=== PATIENT | female | born 1950 | race Caucasian/White ===

== ENCOUNTER 2018-10-10 18:09 | Emergency (ER) | payer SELFPAY ==
[~2018-10-10] VITALS: Ht 167.6 cm; Wt 56.7 kg
[2018-10-10] MEDS ORDERED: Zithromax250 MG PO (19:39)
[2018-10-10] MEDS ORDERED: Cheratussin AC118 ML PO (19:39)
== END 2018-10-10 19:52 | disposition home or self-care (01) ==
LOC: ER 18:09
DX: J18.9 Pneumonia, unspecified organism (principal); F17.200 Nicotine dependence, unspecified, uncomplicated
CPT/HCPCS: 71046; 99283-25

== ENCOUNTER 2020-05-26 07:29 | Emergency (ER) | payer MEDICARE ==
[~2020-05-26] VITALS: Ht 167.6 cm; Wt 63.5 kg
[~2020-05-26 07:29] MED LIST: Cheratussin AC118 ML PO; Zithromax250 MG PO
[2020-05-26] MEDS ORDERED: GUAI600T33 PO (08:28)
[2020-05-26] MEDS ORDERED: DOXY100 PO (08:28)
== END 2020-05-26 08:34 | disposition home or self-care (01) ==
LOC: ER 07:29
DX: J40 Bronchitis, not specified as acute or chronic (principal)
CPT/HCPCS: 71045; 99283-25

== ENCOUNTER 2020-06-06 19:18 | Inpatient (IN) | payer MEDICARE ==
[~2020-06-06] VITALS: Ht 167.6 cm; Wt 62.3 kg
[~2020-06-06 19:18] MED LIST changes: +DOXY100 PO; +GUAI600T33 PO
[2020-06-06 20:23] LABS: BASOPHILS ABSOLUTE AUTO 0.04 K/mm3 (0.00-0.23); BASOPHILS PERCENT AUTO 0 % (0-2); EOSINOPHILS ABSOLUTE AUTO 0.02 K/mm3 (0.00-0.68); EOSINOPHILS PERCENT AUTO 0 % (0-6); Hematocrit 46.6 % (33.0-51.0); Hemoglobin 16.6 g/dL (11.5-16.0); IMMATURE GRAN ABSOLUTE AUTO 0.03 K/mm3 (0.00-0.10); IMMATURE GRAN PERCENT AUTO 0 % (0-1); LYMPHOCYTES PERCENT AUTO 23 % (21-46); MONOCYTES ABSOLUTE AUTO 0.82 K/mm3 (0.16-1.47); MONOCYTES PERCENT AUTO 8 % (4-13); Mean Corpuscular HGB 37.3 pg (26.0-34.0); Mean Corpuscular HGB Conc 35.6 g/dL (31.5-36.5); Mean Corpuscular Volume 105 fL (80-100); NEUTROPHILS PERCENT AUTO 69 % (41-73); Platelet Count 391 K/mm3 (150-400); RDW Coefficient Variation 12.7 % (11.7-14.2); RDW Standard Deviation 49.1 fL (35.1-46.3); Red Blood Cell Count 4.45 M/mm3 (3.80-5.20); White Blood Cell Count 10.91 K/mm3 (4.00-11.30)
[2020-06-06 20:24] LABS: Source, Urine Clean Catch
[2020-06-06 20:29] LABS: Appearance, Urine Clear (Clear); Bilirubin, Urine Neg (Neg); Blood, Urine Neg (Neg); Color, Urine Yellow (P-Yellow); Glucose Qualitative, Urine Neg (Neg); Ketones, Urine Neg (Neg); Leukocyte Esterase, Urine Neg (Neg); Nitrite, Urine Neg (Neg); Protein, Urine Neg (Neg); Specific Gravity, Urine 1.005 (1.003-1.022); Urobilinogen, Urine NORM (Normal)
[2020-06-06 20:42] LABS: Alanine Aminotransfer (ALT/SGP 81 U/L (12-78); Albumin, Blood 3.8 g/dL (3.4-5.0); Albumin/Globulin Ratio 1.1 (0.8-1.8); Alk Phos 99 U/L (50-136); Anion Gap 12 mmol/L (6-16); Aspartate Aminotrans (AST/SGOT 84 U/L (12-37); Bilirubin, Total 0.6 mg/dL (0.1-1.0); Blood Urea Nitrogen 14 mg/dL (8-24); Bun/Creatinine Ratio 21.5 (12.0-20.0); CO2, Blood 23 mmol/L (21-32); Calcium, Blood 9.1 mg/dL (8.5-10.1); Chloride, Blood 97 mmol/L (98-108); Creatinine, Blood 0.65 mg/dL (0.40-1.00); Ethanol (Alcohol), Blood, Med 129 mg/dL; Globulin, Blood 3.5 g/dL (2.2-4.0); Glomerular Filtration Rate >60 (60-); Glucose, Blood 78 mg/dL (70-99); Magnesium, Blood 2.1 mg/dL (1.6-2.4); Phosphorus, Blood 2.9 mg/dL (2.5-4.9); Potassium, Blood 4.3 mmol/L (3.5-5.5); Sodium, Blood 132 mmol/L (136-145); Total Protein, Blood 7.3 g/dL (6.4-8.2)
[2020-06-06 20:46] LABS: U Amphetamine Screen DETECTED; U Barbituate Screen Not Detected; U Benzodiazapine Screen Not Detected; U Buprenorphine Screen Not Detected; U Cannabinoids Screen DETECTED; U Cocaine Screen Not Detected; U Methadone Screen Not Detected; U Methamphetamine Screen DETECTED; U Opiates Screen Not Detected; U Oxycodone Screen Not Detected; U Phencyclidine Screen Not Detected; U Propoxyphene Screen Not Detected
--- NOTE | 2020-06-07 05:00 | NUR ---
SHIFT SUMMARY PT NEW ED ADMIT THIS EVENING. ADMITTED FOR ALCOHOL WITHDRAWALS. PT STATES THAT THE LAST TIME SHE DRANK WAS Friday06/05/20 AND THAT SHE "USUALLY DRINKS ABOUT A PINT" A DAY OF VODKA. SHE ALSO REPORTS RECENTLY USING METH BUT WAS UNABLE TO STATE EXACTLY WHEN. PT IS CONFUSED. ABLE TO ANSWER SOME QUESTIONS APPROPRIATELY BUT STATED THAT THE DATE WAS JUNE 27, 1920. CIWA 4. PT MEDICATED BY ER BEFORE ADMISSION. NO FURTHER PRN'S GIVEN SO FAR THIS SHIFT. PT HAS BEEN DROWSY SINCE ADMISSION. SLEEPING MUCH OF THE SHIFT. VISIBLE TREMORS. PT APPEARS VERY UNKEMPT. SMELLS OF URINE. WAS INCONTINENT TONIGHT. ATTENDS PLACED ON PT. VITAL SIGNS STABLE. WILL CONTINUE TO MONITOR AND REPORT TO DAY RN.
[2020-06-07 05:56] LABS: Alanine Aminotransfer (ALT/SGP 64 U/L (12-78); Albumin, Blood 3.5 g/dL (3.4-5.0); Albumin/Globulin Ratio 1.1 (0.8-1.8); Alk Phos 89 U/L (50-136); Anion Gap 10 mmol/L (6-16); Aspartate Aminotrans (AST/SGOT 62 U/L (12-37); Bilirubin, Total 0.9 mg/dL (0.1-1.0); Blood Urea Nitrogen 11 mg/dL (8-24); CO2, Blood 26 mmol/L (21-32); Calcium, Blood 8.8 mg/dL (8.5-10.1); Chloride, Blood 98 mmol/L (98-108); Creatinine, Blood 0.61 mg/dL (0.40-1.00); Globulin, Blood 3.1 g/dL (2.2-4.0); Glomerular Filtration Rate >60 (60-); Glucose, Blood 83 mg/dL (70-99); Potassium, Blood 4.3 mmol/L (3.5-5.5); Sodium, Blood 134 mmol/L (136-145); Total Protein, Blood 6.6 g/dL (6.4-8.2)
--- NOTE | 2020-06-07 18:05 | NUR ---
SHIFT SUMMARY PT SLEEPING MOST OF THE DAY. 1 PERSON ASSIST UP TO BSC. HAS DENIED PAIN OR NAUSEA. CIWAS HAVE BEEN 4-5. STATES SHE FEELS BETTER THAN WHEN SHE FIRST ARRIVED TO HOSPITAL.
--- NOTE | 2020-06-07 19:05 | NUR ---
ASSUMED CARE RECEIVED REPORT FROM CAIO ORNELAS. PT RESTING COMFORTABLY, NO APPARENT DISTRESS NOTED. NO ACUTE NEEDS ASSESSED AT THIS TIME. CALL LIGHT, POSSESSIONS IN REACH, BED IN LOW POSITION WITH ALARMS ON. CONTINUE TO MONITOR.
--- NOTE | 2020-06-08 04:51 | NUR ---
SPOKE TO DR. ROMERO REGARDING PT'S C/O PAIN AND NEED FOR ORDERS FOR PAIN MEDICATION. ORDERS RECEIVED. CONTINUE TO MONITOR.
--- NOTE | 2020-06-08 07:15 | NUR ---
SHIFT SUMMARY PT ASLEEP, NO S/S ACUTE DISTRESS NOTED, DENIES PAIN. VS REVIEWED,WNL. HIGHEST CIWA SCORE OF 8 D/T INCREASED TREMORS, MEDICATED PER EMAR. NO OTHER ACUTE CHANGES IN CONDITION T/O NIGHT. PT APPEARED TO SLEEP ON AND OFF T/O NIGHT. DENIES NEEDS AT THIS TIME. CALL LIGHT, POSSESSIONS IN REACH, BED IN LOW POSITION WITH ALARMS ON. REPORT GIVEN TO CAIO ORNELAS.
--- NOTE | 2020-06-08 19:00 | NUR ---
ASSUMED CARE RECEIVED REPORT FROM CAIO ORNELAS. ASSUMED CARE OF PT. PT RESTING COMFORTABLY, NO S/S ACUTE DISTRESS NOTED, RESPS E/U. DENIES NEEDS AT THIS TIME. CALL LIGHT, POSSESSIONS IN REACH, BED IN LOW POSITION WITH ALARMS ON. CONTINUE TO MONITOR.
--- NOTE | 2020-06-08 19:00 | NUR ---
SHIFT SUMMARY PT HAS BEEN SLEEPING MOST OF THE DAY. DOES HAVE TREMORS BUT REPORTS SHE HAS BASELINE WHILE SHE DRINKS WELL. CIWAS RANGE FROM 4-8. REPORTS SORE THROAT THAT TYLENOL HELPS BUT NO FULLY. CHECKED AND THROAT DIDN'T LOOK EXCESSIVELY RED OR SPLOTCHY. UP TO BEDSIDE COMMODE WITH 1 PERSON ASSIST. SHOWER TAKEN. BACK OF HAIRY IN KNOTS THAT ARE UNABLE TO BE REMOVED.
--- NOTE | 2020-06-08 23:30 | NUR ---
SHIFT SUMMARY THIS RN NOTIFIED BY MADELINE GUERRA CNA, OF PT C/O KATE, AND THAT PT WANTS TO LEAVE AMA. THIS RN IN ROOM ASSESSING PT, MEDICATED FOR PAIN PER EMAR. PT STATING, "I WANT TO GO HOME, I FEEL BETTER AT HOME. I ALREADY CALLED MY SISTER AND SHE'S COMING TO GET ME." DISCUSSED THE RISKS OF LEAVING, GIVEN PT DX AND CLINICAL PRESENTATION, WELL THE BENEFITS OF STAYING TO RECEIVE CARE. PT ADAMANT ABOUT LEAVING, REQUESTING FOR IV TO BE REMOVED. DEBRA GAN, HELP DESK ASSOCIATE NOTIFIED OF PT WISHES. SPOKE TO PT AND PT'S SISTER ON PHONE REGARDING PT'S WISHES. PT SIGNED AMA FORMS. NURSING MAIL HANDLER ALSO NOTIFIED.
== END 2020-06-09 01:00 | disposition left against medical advice (07) | DRG 894 ==
LOC: ER 19:18 → MEDS 19:19 → ER 06-07 00:09 → MEDS 06-07 00:09
PROVIDERS: Nurse Practitioner Acute Care; Physician Assistant; ADMIT Internal Medicine
PROC: 3E0234Z Introduction of Serum, Toxoid and Vaccine into Muscle, Percutaneous Approach (ICD-10-PCS; principal; 2020-06-07)
DX: F10.239 Alcohol dependence with withdrawal, unspecified (principal); E87.1 Hypo-osmolality and hyponatremia; Z23 Encounter for immunization; R74.01 Elevation of levels of liver transaminase levels; F19.10 Other psychoactive substance abuse, uncomplicated; K21.9 Gastro-esophageal reflux disease without esophagitis; Z53.29 Procedure and treatment not carried out because of patient's decision for other reasons; Z87.891 Personal history of nicotine dependence
CPT/HCPCS: 36415; 80053; 81003; 83735; 84100; 84484; 85025; 93005; 93010; 96365; 96366; 96372; 96375; 96376; 99285-25; A9270; G0378; G0480; J1650; J2060; J2405; J3411; J3475; J7030; J7042; Q2038

== ENCOUNTER 2020-10-06 18:08 | Emergency (ER) | payer MEDICARE ==
[~2020-10-06] VITALS: Ht 167.6 cm; Wt 59.0 kg
[2020-10-06 18:59] LABS: BASOPHILS ABSOLUTE AUTO 0.08 K/mm3 (0.00-0.23); BASOPHILS PERCENT AUTO 1 % (0-2); EOSINOPHILS ABSOLUTE AUTO 0.22 K/mm3 (0.00-0.68); EOSINOPHILS PERCENT AUTO 1 % (0-6); Hematocrit 45.2 % (33.0-51.0); Hemoglobin 16.1 g/dL (11.5-16.0); IMMATURE GRAN ABSOLUTE AUTO 0.08 K/mm3 (0.00-0.10); IMMATURE GRAN PERCENT AUTO 1 % (0-1); LYMPHOCYTES ABSOLUTE AUTO 0.75 K/mm3 (0.84-5.20); LYMPHOCYTES PERCENT AUTO 5 % (21-46); MONOCYTES PERCENT AUTO 6 % (4-13); Mean Corpuscular HGB 34.3 pg (26.0-34.0); Mean Corpuscular HGB Conc 35.6 g/dL (31.5-36.5); Mean Corpuscular Volume 96 fL (80-100); NEUTROPHILS ABSOLUTE AUTO 14.16 K/mm3 (1.96-9.15); NEUTROPHILS PERCENT AUTO 87 % (41-73); Platelet Count 298 K/mm3 (150-400); RDW Coefficient Variation 14.5 % (11.7-14.2); RDW Standard Deviation 51.6 fL (35.1-46.3); Red Blood Cell Count 4.69 M/mm3 (3.80-5.20); White Blood Cell Count 16.19 K/mm3 (4.00-11.30)
[2020-10-06 19:02] LABS: Source, Urine Clean Catch
[2020-10-06 19:08] LABS: Appearance, Urine Cloudy (Clear); Blood, Urine 2+ (Neg); Color, Urine Yellow (P-Yellow); Glucose Qualitative, Urine Neg (Neg); Ketones, Urine 1+ (Neg); Leukocyte Esterase, Urine 3+ (Neg); Nitrite, Urine Pos (Neg); Protein, Urine 3+ (Neg); Urobilinogen, Urine 2+ (Normal)
[2020-10-06 19:15] LABS: Albumin, Blood 3.1 g/dL (3.4-5.0); Albumin/Globulin Ratio 0.8 (0.8-1.8); Bilirubin, Total 1.1 mg/dL (0.1-1.0); Bun/Creatinine Ratio 10.8 (12.0-20.0); Calcium, Blood 8.8 mg/dL (8.5-10.1); Creatinine, Blood 1.2 mg/dL (0.40-1.00); Globulin, Blood 3.8 g/dL (2.2-4.0); Potassium, Blood 3.2 mmol/L (3.5-5.5); Total Protein, Blood 6.9 g/dL (6.4-8.2)
[2020-10-06 19:19] LABS: Bilirubin, Urine 2+ (Neg)
[2020-10-06 19:20] LABS: WBC Cast Rare /lpf (0); White Blood Cells, Urine TNTC /hpf (0-5)
[2020-10-06 19:21] LABS: Bacteria Many /hpf; Squamous Epithelial Cells Many /hpf (Few); Yeast/Fungi Urine Rare /hpf
[2020-10-06] MEDS ORDERED: Macrobid 100 M100 MG PO (20:26)
== END 2020-10-06 20:28 | disposition home or self-care (01) ==
LOC: ER 18:08
PROVIDERS: Emergency Medicine
DX: N39.0 Urinary tract infection, site not specified (principal); Z87.891 Personal history of nicotine dependence; Z79.899 Other long term (current) drug therapy
CPT/HCPCS: 36415; 80053; 81001; 83690; 85025; 87077; 87086; 87186; 96374; 99284-25; A9270; J2405

== ENCOUNTER 2024-08-26 12:14 | Inpatient (IN) | payer MEDICARE, OTHER ==
[~2024-08-26] VITALS: Ht 167.6 cm; Wt 56.2 kg
[~2024-08-26 12:14] MED LIST changes: +Macrobid 100 M100 MG PO
[2024-08-26] MEDS ORDERED: Ondansetron HCl 2 MG / ML 2ML Vial IV PRN ×3 (12:25→16:35)
[2024-08-26 13:43] LABS: BASOPHILS ABSOLUTE AUTO 0.03 K/mm3 (0.00-0.23); BASOPHILS PERCENT AUTO 0 % (0-2); EOSINOPHILS ABSOLUTE AUTO 0.02 K/mm3 (0.00-0.68); EOSINOPHILS PERCENT AUTO 0 % (0-6); Hematocrit 41.3 % (33.0-51.0); Hemoglobin 14.9 g/dL (11.5-16.0); IMMATURE GRAN ABSOLUTE AUTO 0.03 K/mm3 (0.00-0.10); IMMATURE GRAN PERCENT AUTO 0 % (0-1); LYMPHOCYTES ABSOLUTE AUTO 0.84 K/mm3 (0.84-5.20); LYMPHOCYTES PERCENT AUTO 7 % (21-46); MONOCYTES ABSOLUTE AUTO 0.44 K/mm3 (0.16-1.47); MONOCYTES PERCENT AUTO 4 % (4-13); Mean Corpuscular HGB 37.5 pg (26.0-34.0); Mean Corpuscular HGB Conc 36.1 g/dL (31.5-36.5); Mean Corpuscular Volume 104 fL (80-100); Mean Platelet Volume 10.5 fL (9.1-12.4); NEUTROPHILS ABSOLUTE AUTO 10.32 K/mm3 (1.96-9.15); NEUTROPHILS PERCENT AUTO 88 % (41-73); Platelet Count 272 K/mm3 (150-400); RDW Coefficient Variation 17.1 % (11.7-14.2); RDW Standard Deviation 65.4 fL (35.1-46.3); Red Blood Cell Count 3.97 M/mm3 (3.80-5.20); White Blood Cell Count 11.68 K/mm3 (4.00-11.30)
[2024-08-26] MEDS ORDERED: NS 1,000 ML IV SCH ×2 (13:45→16:30)
[2024-08-26] MEDS ORDERED: Thiamine HCl 100 MG in NS 50 ML IV ONE (13:50)
[2024-08-26] MEDS ORDERED: Folic Acid 1 MG TAB PO ONE (13:50)
[2024-08-26] MEDS ORDERED: LORazepam 2 MG/ML 1ML Injection IV ONE (13:50)
[2024-08-26 14:05] LABS: Ethanol (Alcohol), Blood, Med <3 mg/dL; Magnesium, Blood 1.6 mg/dL (1.6-2.4); Phosphorus, Blood 4.1 mg/dL (2.5-4.9)
[2024-08-26 14:21] LABS: Albumin, Blood 3.5 g/dL (3.4-5.0); Albumin/Globulin Ratio 1.1 (0.8-1.8); Bilirubin, Total 1.4 mg/dL (0.1-1.0); Bun/Creatinine Ratio 21.3 (12.0-20.0); Calcium, Blood 8.7 mg/dL (8.5-10.1); Creatinine, Blood 0.66 mg/dL (0.40-1.00); Globulin, Blood 3.1 g/dL (2.2-4.0); Total Protein, Blood 6.6 g/dL (6.4-8.2)
[2024-08-26] MEDS ORDERED: Potassium Chloride 40 MEQ in NS 250 ML IV ONE (15:45)
[2024-08-26] MEDS ORDERED: ChlordiazePOXIDE 25 MG Cap PO PRN (16:30)
[2024-08-26] MEDS ORDERED: Morphine Sulfate 4 MG/1 ML Injection IV PRN (16:30)
[2024-08-26] MEDS ORDERED: LORazepam 2 MG/ML 1ML Injection IV PRN (16:30)
[2024-08-26] MEDS ORDERED: Acetaminophen 325 MG TABLET PO PRN (16:35)
[2024-08-26 18:51] VITALS: BP 145/94
[2024-08-26 19:38] VITALS: BP 159/97
[2024-08-26] MEDS ORDERED: Famotidine 20 MG Tab PO SCH (21:00)
[2024-08-26] MEDS ORDERED: Docusate Sodium 100 MG Cap PO SCH (21:00)
[2024-08-26] MEDS ORDERED: Gabapentin 300 MG Cap PO SCH (21:00)
--- NOTE | 2024-08-26 22:24 | NUR ---
ASSUMPTION OF CARE REPORT RECIEVED FROM RN. PT SLEEPY BUT EASILY AROUSABLE WITH VERBAL STIMULI. PT ABLE TO ANSWERS ORIENTATION QUESTIONS APPROPRIATELY. ORIENTED X4. CIWAS PER PROTOCOL. LAST CIWA OF 5, MEDICATING PER EMAR. SHE IS COOPERATIVE TO CARE. PT WITH A TREMOR, REPORTS THIS IS CHRONIC. HR IN THE 90'S SINUS RHYTHM. SHE DENIES ANY CP/PRESSURE, NUMB/TINGLING, SBP STABLE. O2 >92% ON RA, SHE DENIES ANY SOB. PER PT SHE DRINKS 5-7 SHOTS OF 99 PROOF VODKA DAILY. SHE REPORTS HER LAST DRINK WAS YESTERDAY MORNING. CIWAS STABLE AT THSI TIME. PT RESTING IN BED AT THIS TIME. SHE DENIES ANY QUESTIONS OR CONCERNS AT THIS TIME. CALL LIGHT IN REACH. WILL MONITOR PT.
--- NOTE | 2024-08-26 23:02 | NUR ---
SECURITY TO PT ROOM. PT LEFT HER MOTOR HOME KEYS IN THE IGNITION. PER PT SHE DROVE MOTOR HOME HERE. PT GAVE SECURITY PERMISSION TO OKAY THE [employer] TO HOLD HER KEYS AT THEIR DEPARTMENT.
[2024-08-26 23:44] VITALS: BP 127/79
[2024-08-27] MEDS ORDERED: Thiamine HCl 250 MG in NS 100 ML IV SCH
[2024-08-27 04:57] LABS: BASOPHILS ABSOLUTE AUTO 0.02 K/mm3 (0.00-0.23); BASOPHILS PERCENT AUTO 0 % (0-2); EOSINOPHILS ABSOLUTE AUTO 0.05 K/mm3 (0.00-0.68); EOSINOPHILS PERCENT AUTO 1 % (0-6); Hematocrit 35.4 % (33.0-51.0); Hemoglobin 12.5 g/dL (11.5-16.0); IMMATURE GRAN ABSOLUTE AUTO 0.03 K/mm3 (0.00-0.10); IMMATURE GRAN PERCENT AUTO 0 % (0-1); LYMPHOCYTES ABSOLUTE AUTO 1.06 K/mm3 (0.84-5.20); LYMPHOCYTES PERCENT AUTO 13 % (21-46); MONOCYTES ABSOLUTE AUTO 0.32 K/mm3 (0.16-1.47); MONOCYTES PERCENT AUTO 4 % (4-13); Mean Corpuscular HGB 37.5 pg (26.0-34.0); Mean Corpuscular HGB Conc 35.3 g/dL (31.5-36.5); Mean Corpuscular Volume 106 fL (80-100); Mean Platelet Volume 10.2 fL (9.1-12.4); NEUTROPHILS ABSOLUTE AUTO 6.93 K/mm3 (1.96-9.15); NEUTROPHILS PERCENT AUTO 82 % (41-73); Platelet Count 191 K/mm3 (150-400); RDW Coefficient Variation 17.2 % (11.7-14.2); RDW Standard Deviation 67.1 fL (35.1-46.3); Red Blood Cell Count 3.33 M/mm3 (3.80-5.20); White Blood Cell Count 8.41 K/mm3 (4.00-11.30)
--- NOTE | 2024-08-27 05:15 | NUR ---
SHIFT SUMMARY PT A&O X4. CALM, COOPERATIVE TO CARE. CIWA'S PER PROTOCOL, RANGING FROM 3-5. PT SLEEPY BUT EASILY AROUSABLE. SHE HAS TREMORS AT BASELINE. PER PT SHE DEVELOPED TREMORS A FEW YEARS AGO WHILE TRYING TO QUIT DRINKING ALCOHOL AND THEY NEVER RESOLVED. HR IN THE 80'S, SR. SHE DENIES CP/PRESSURE, NUMB/TINGLING, SBP STABLE. O2 >90% ON RA. SHE DENIES ANY SOB. PT HAS PUREWICK IN PLACE. DRIAINING YELLOW URINE. +BS. PT HAD SOME ABD PAIN AT START OF SHIFT BUT REPORTS IT HAS RESOLVED AT THIS TIME. SHE DENIES ANY N/V. LONG CONVERSATION WITH PT ABOUT ALCOHOL DEPENDENCE. PT REPORTED SHE HAS NEVER WENT THROUGH WITHDRAWALS IN THE PAST WHEN SHE TRIED TO QUIT DRINKING. SHE STATED ABOUT THREE YEARS AGO SHE TRIED TO QUIT AND DURING THAT TIME SHE DEVELOPED TREMORS THAT HAVE NEVER RESOLVED. PT ALSO RPEORTS SHE WENT TO [facility] FOR TREATMENT A FEW YEARS AGO. PT HAS BEEN RESTING IN BED, VERY PLEASENT AND COOPERATIVE. SHE HAS CALL LIGHT IN REACH. WILL MONITOR PT AND REPORT TO ONCOMING RN.
[2024-08-27 05:32] LABS: Albumin, Blood 2.9 g/dL (3.4-5.0); Albumin/Globulin Ratio 1.2 (0.8-1.8); Bilirubin, Total 1.1 mg/dL (0.1-1.0); Bun/Creatinine Ratio 11.8 (12.0-20.0); Calcium, Blood 7.9 mg/dL (8.5-10.1); Creatinine, Blood 0.68 mg/dL (0.40-1.00); Globulin, Blood 2.5 g/dL (2.2-4.0); Total Protein, Blood 5.4 g/dL (6.4-8.2)
[2024-08-27] MEDS ORDERED: Potassium Chl 20MEQ/Water100ML 100 ML IV ONE (06:15)
--- NOTE | 2024-08-27 06:30 | NUR ---
UPDATE PT HAD MORNING LABS COMPLETED. PTS POTASSIUM CAME BACK AT 3.0. RESIDENT CALLED AND NOTIFIED. ORDER PLACED FOR 20 MEQ IV POTASSIUM. AWAITING FOR [facility] TO SEND.
[2024-08-27 07:32] VITALS: BP 107/87
[2024-08-27] MEDS ORDERED: Enoxaparin 40 MG/0.4 ML SYR SC SCH (09:00)
[2024-08-27] MEDS ORDERED: Folic Acid 1 MG in NS 50 ML IV SCH (09:00)
[2024-08-27] MEDS ORDERED: Nicotine 14 MG PATCH TOP SCH (09:00)
[2024-08-27] MEDS ORDERED: Protein Supplement 30 ML UD PO SCH (14:00)
[2024-08-27 15:39] VITALS: BP 110/69
--- NOTE | 2024-08-27 18:36 | NUR ---
SHIFT SUMMARY; ASSUMED CARE AT 0700. A/A/OX3 DURING SHIFT. CIWA'S T/O SHIFT. MEDICATED PER EMAR. VSS, UNSTEADY ON FEET, BED ALARM SET. STATUS CHANGED TO MEDICAL AND TELE DC'D. NO ACUTE CHANGES, WILL CONTINUE TO MONITOR AND TREAT UNTIL REPORT GIVEN TO NOC SHIFT RN AT CHANGE OF SHIFT.
[2024-08-27 19:47] VITALS: BP 101/73
[2024-08-28 04:22] VITALS: BP 116/75
--- NOTE | 2024-08-28 05:53 | NUR ---
SHIFT SUMMARY MEDICAL NO TELE STATUS PATIENT ALERT, ORIENTED x3-4. CIWA 1 ENTIRE SHIFT D/T SLIGHT TREMOR. BP STABLE. ON RA WITH SPO2 >90%. PATIENT AMBULATING INTO BATHROOM 1 PERSON ASSIST WITH WALKER. PATIENT WITH AN EPISODE OF DIARRHEA THIS SHIFT. PATIENT LOOKED OVER [facility] PAPERWORK THIS SHIFT AND STATES SHE WILL FILL IT OUT WHEN HER SISTER COMES TO VIST HER OR WHEN SHE IS DISCHARGED. NO OTHER CAHNGES DURING THE NIGHT. WILL REPORT TO DAY SHIFT RN.
[2024-08-28 08:14] VITALS: BP 124/77
[2024-08-28] MEDS ORDERED: Primidone 50 MG Tab PO SCH (09:00)
--- NOTE | 2024-08-28 13:10 | NUR ---
Transfer to Medical Pt A&O x4. Medical w/ no telemetry status. VSS. Spo2 > 92% on RA. CIWA score of 2 d/t tremor though tremor reported to be essential tremor. w/ new order for PO mysoline. Pt noted to be less tremulous this afternoon. Pt confirming plan to discharge to [facility] from hospital on Friday after [facility] assessment Friday. Pt SBA w/ FWW. Pt w/ loose brown stools. Pt denying nausea, pain or discomfort. w/ order to advance diet from full liquid diet to regular diet this shift. Report given to accepting medical floor RN. Pt taken to rm 349 by wheelchair w/ belongings @ approx 1300.
[2024-08-28 13:20] VITALS: BP 123/90
[2024-08-28 15:38] VITALS: BP 112/60
--- NOTE | 2024-08-28 17:54 | NUR ---
PT TRANSFERRED FROM PCU THIS AFTERNOON. PT HERE FOR PANCREATITIS AND ETOH WITHDRAWAL, HIGHEST CIWA OF 2 FOR ESSENTIAL TREMORS. PT A&OX4, VSS, RA, 1 PA TO BATHROOM WITH FWW, PT UNSTEADY ON FEET. CONT./INC. URGENCY. NS RUNNING AT 100 ML/HR. PT COOPERATIVE WITH CARE CALLS APPROPRIATLY.
[2024-08-28 19:20] VITALS: BP 138/80
[2024-08-29 03:41] VITALS: BP 158/90
--- NOTE | 2024-08-29 05:40 | NUR ---
SHIFT SUMMARY PT SLEPT LONG INTERVALS DURING THE NIGHT. CIWA SCORE 2-3 FOR ESSENTIAL TREMOR AND SLIGHT HEADACHE ONLY. UP TO BATHROOM WITH FWW AND SBA FOR UNSTEADY GAIT. PT MOSTLY CONTINENT. CONTINUOUS IVF RUNNING PER ORDER. BED IN LOWEST POSITION, CALL LIGHT WITHIN REACH, SIDERAILS UP X2.
[2024-08-29 05:46] LABS: BASOPHILS ABSOLUTE AUTO 0.02 K/mm3 (0.00-0.23); BASOPHILS PERCENT AUTO 0 % (0-2); EOSINOPHILS ABSOLUTE AUTO 0.09 K/mm3 (0.00-0.68); EOSINOPHILS PERCENT AUTO 1 % (0-6); Hematocrit 28.9 % (33.0-51.0); IMMATURE GRAN ABSOLUTE AUTO 0.01 K/mm3 (0.00-0.10); IMMATURE GRAN PERCENT AUTO 0 % (0-1); LYMPHOCYTES ABSOLUTE AUTO 1.44 K/mm3 (0.84-5.20); LYMPHOCYTES PERCENT AUTO 23 % (21-46); MONOCYTES ABSOLUTE AUTO 0.45 K/mm3 (0.16-1.47); MONOCYTES PERCENT AUTO 7 % (4-13); Mean Corpuscular HGB 36.8 pg (26.0-34.0); Mean Corpuscular HGB Conc 34.6 g/dL (31.5-36.5); Mean Corpuscular Volume 106 fL (80-100); NEUTROPHILS ABSOLUTE AUTO 4.25 K/mm3 (1.96-9.15); NEUTROPHILS PERCENT AUTO 68 % (41-73); Platelet Count 135 K/mm3 (150-400); RDW Coefficient Variation 16.5 % (11.7-14.2); RDW Standard Deviation 64.1 fL (35.1-46.3); Red Blood Cell Count 2.72 M/mm3 (3.80-5.20); White Blood Cell Count 6.26 K/mm3 (4.00-11.30)
[2024-08-29 06:21] LABS: Bun/Creatinine Ratio 23.7 (12.0-20.0); Creatinine, Blood 0.63 mg/dL (0.40-1.00); Potassium, Blood 2.8 mmol/L (3.5-5.5)
[2024-08-29 07:28] VITALS: BP 126/78
[2024-08-29] MEDS ORDERED: Potassium Chl 20MEQ/Water100ML 100 ML IV SCH (08:20)
[2024-08-29] MEDS ORDERED: Thiamine HCl 100 MG Tab PO SCH (09:00)
[2024-08-29] MEDS ORDERED: Folic Acid 1 MG TAB PO SCH (09:00)
[2024-08-29] MEDS ORDERED: Mag Sulfate 1 GM/D5% 100ML 100 ML IV STA (12:03)
[2024-08-29] MEDS ORDERED: Gabapentin 100 MG Cap PO SCH (14:00)
[2024-08-29 15:29] VITALS: BP 120/74
--- NOTE | 2024-08-29 18:32 | NUR ---
PT A&OX3, SOMETIMES FORGETFUL, ABLE TO MAKE NEEDS KNOWN. HIGHEST CIWA OF 4 FOR MILD NAUSEA, TREMORS, AND ANXIETY. PT WAS INCONTINENT OF BOWEL AND BLADDER, 1 LG LOOSE LIGHT BROWN/YELLOW STOOL THIS SHIFT. PT POTASSIUM AND MAGNESIUM REPLACED PER ORDER. PT AWARE OF [facility] COMING TOMORROW. COOPERATIVE WITH CARES, CALLS APPROPRIATLY.
[2024-08-29 19:34] VITALS: BP 121/74
[2024-08-30 02:57] VITALS: BP 114/63
--- NOTE | 2024-08-30 06:17 | NUR ---
PT A&O TO PERSON AND PLACE, BUT WAS 10 DAYS OFF OF DATE. MOVES ALL EXTREMTIES WELL, INDEPENDENT IN RM. NATUROPATHIC ONCOLOGY PROVIDER WERE EQUAL TO ALL EXTREMETIES. PUPILS ARE ROUND, REACTIVE AND EQUAL TO LIGHT. DURING THE BEGINNING OF THE SHIFT, PT REPORTED FEELING ANXIOUS AND HAVING INCREASED TREMORS. SHE CALLED HER FRIEND TO COME GET HER AND SAID SHE WAS GOING TO LEAVE AMA. DISCUSSED WITH PT SYMPTOMS OF WITHDRAWL AND MEDICATION AVAILABLE TO HELP. SHE DENIED HAVING WITHDRAWLS AND AGREED TO TAKE MEDICATION PRESCRIBED. DURING REASSESSMENT PT REPORTED SHE NO LONGER FELT ANXIOUS AND WAS NOT GOING TO LEAVE AMA. PT FRIEND CAME BY AND DROPPED OFF CLOTHING WHILE PT WAS SLEEPING. BILATERAL BREATH SOUNDS ARE CLEAR T/O, NO COUGH OR SOB OF BREATH NOTED. ABD SOFT AND NON TENDER. PT REPORTS HAVING LOOSE STOOLS. PT WAS INCONTINENT OF URINE DURING THIS SIFT. PT INCONTINENT OF URINE AND WAS ASSISTED WITH SHOWER THIS AM.
[2024-08-30 06:39] LABS: Bun/Creatinine Ratio 24.5 (12.0-20.0); Calcium, Blood 8.4 mg/dL (8.5-10.1); Creatinine, Blood 0.57 mg/dL (0.40-1.00); Potassium, Blood 3.2 mmol/L (3.5-5.5)
[2024-08-30 07:05] VITALS: BP 142/91
[2024-08-30] MEDS ORDERED: Potassium Chloride 20 MEQ TabCR PO ONE (08:00)
--- NOTE | 2024-08-30 10:01 | NUR ---
[facility] IN ROOM FILLING OUT PAPERWORK FOR HER. STATES NOT KNOWN IF ACCEPTING OR NOT.
--- NOTE | 2024-08-30 14:10 | NUR ---
alicia downs [facility] ins. request update when might be released.
[2024-08-30 15:11] VITALS: BP 125/84
--- NOTE | 2024-08-30 16:42 | NUR ---
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 she wants me to talk to [facility] with her. [facility] states has appt for friday 09/08. some 10 days away. pt can come to [facility] for appt. asked if can get to [facility] if goes straight from here earlier. [facility] states not known by them. but can have [facility] call case management tomorrow am. pt states really wants to go home today. called dr kilgore. states can go home. needs ride to be safe. ask pt if can get ride home. if so can d/c.
--- NOTE | 2024-08-30 17:17 | NUR ---
pt found ride, wants to go. called dr batres back. will do discharge
[2024-08-30] MEDS ORDERED: FOLI1 PO (17:24)
[2024-08-30] MEDS ORDERED: Acetaminophen650 M1 PO (17:24)
[2024-08-30] MEDS ORDERED: Primidone50 MG PO (17:25)
--- NOTE | 2024-08-30 18:45 | NUR ---
DISCHARGE REVIEWED WITH PT. VERBALIZED UNDERSTANDING MEDS AND INSTRUCTIONS. PT IV PULLED BY AIDE. NO TELE. PT WHEELED TO DOOR AT 1830
[2024-08-30] MEDS ORDERED: Primidone 50 MG Tab PO SCH (21:00)
== END 2024-08-30 18:25 | disposition home health service (06) | DRG 439 ==
LOC: ER 12:14 → ERHOLD 12:15 → PCU 12:15 → MEDS 08-28 13:21
PROVIDERS: Student in an Organized Health Care Education/Training Program; ADMIT Internal Medicine
PROC: HZ2ZZZZ Detoxification Services for Substance Abuse Treatment (ICD-10-PCS; principal; 2024-08-26)
DX: K85.20 Alcohol induced acute pancreatitis without necrosis or infection (principal); E87.1 Hypo-osmolality and hyponatremia; F10.239 Alcohol dependence with withdrawal, unspecified; F41.9 Anxiety disorder, unspecified; E87.6 Hypokalemia; E83.42 Hypomagnesemia; D72.829 Elevated white blood cell count, unspecified; R74.01 Elevation of levels of liver transaminase levels; R53.1 Weakness; G25.0 Essential tremor; Y90.0 Blood alcohol level of less than 20 mg/100 ml; F12.10 Cannabis abuse, uncomplicated; Z87.01 Personal history of pneumonia (recurrent); Z87.891 Personal history of nicotine dependence
CPT/HCPCS: 36415; 80048; 80053; 80320; 83690; 83735; 84100; 84132; 85025; 93005; 93010; 94760; 96361; 96365; 96366; 96368; 96372; 96375; 96376; 97110; 97116; 97161; 97165; 97530; 97535; 99285-25; A9270; G0378; J1650; J2060; J3411; J3475; J3480; J7030; J7050

== ENCOUNTER 2025-01-26 18:42 | Emergency (ER) | payer MEDICARE, OTHER ==
[~2025-01-26] VITALS: Ht 157.5 cm; Wt 72.6 kg
[~2025-01-26 18:42] MED LIST changes: +Acetaminophen650 M1 PO; +FOLI1 PO; +Primidone50 MG PO
[2025-01-26 18:43] VITALS: BP 134/76
[2025-01-26 19:30] LABS: BASOPHILS ABSOLUTE AUTO 0.04 K/mm3 (0.00-0.23); BASOPHILS PERCENT AUTO 1 % (0-2); EOSINOPHILS ABSOLUTE AUTO 0.05 K/mm3 (0.00-0.68); EOSINOPHILS PERCENT AUTO 1 % (0-6); Hematocrit 34.5 % (33.0-51.0); Hemoglobin 12.1 g/dL (11.5-16.0); IMMATURE GRAN ABSOLUTE AUTO 0.01 K/mm3 (0.00-0.10); IMMATURE GRAN PERCENT AUTO 0 % (0-1); LYMPHOCYTES ABSOLUTE AUTO 1.82 K/mm3 (0.84-5.20); LYMPHOCYTES PERCENT AUTO 27 % (21-46); MONOCYTES ABSOLUTE AUTO 0.53 K/mm3 (0.16-1.47); MONOCYTES PERCENT AUTO 8 % (4-13); Mean Corpuscular HGB Conc 35.1 g/dL (31.5-36.5); Mean Corpuscular Volume 107 fL (80-100); NEUTROPHILS ABSOLUTE AUTO 4.42 K/mm3 (1.96-9.15); NEUTROPHILS PERCENT AUTO 64 % (41-73); NRBC ABSOLUTE 0.00 K/mm3 (0.00-0.02); NRBC Auto 0.0 /100 WBC (0.0-0.2); Platelet Count 322 K/mm3 (150-400); RDW Coefficient Variation 19.4 % (11.7-14.2); RDW Standard Deviation 76.7 fL (35.1-46.3)
[2025-01-26 19:44] LABS: Prothrombin Time Results 10.4 Sec (9.7-11.5)
[2025-01-26 20:21] LABS: Alanine Aminotransfer (ALT/SGP 16 U/L (12-78); Albumin, Blood 3.6 g/dL (3.4-5.0); Albumin/Globulin Ratio 1.2 (0.8-1.8); Anion Gap 9 mmol/L (3-11); Aspartate Aminotrans (AST/SGOT 16 U/L (12-37); Bilirubin, Total 0.3 mg/dL (0.1-1.0); Blood Urea Nitrogen 8 mg/dL (8-24); CO2, Blood 25 mmol/L (21-32); Calcium, Blood 8.5 mg/dL (8.5-10.1); Chloride, Blood 104 mmol/L (98-108); Creatinine, Blood 0.75 mg/dL (0.40-1.00); Ethanol (Alcohol), Blood, Med <3 mg/dL; Globulin, Blood 3.0 g/dL (2.2-4.0); Glucose, Blood 99 mg/dL (70-99); Potassium, Blood 3.8 mmol/L (3.5-5.5); Sodium, Blood 134 mmol/L (136-145); Thyroid Stimulating Hormone 95.400 uIU/mL (0.360-4.800); Total Protein, Blood 6.6 g/dL (6.4-8.2)
== END 2025-01-26 23:07 | disposition home or self-care (01) ==
LOC: ER 18:42
PROVIDERS: Emergency Medicine
DX: R25.1 Tremor, unspecified (principal); E03.9 Hypothyroidism, unspecified; Z87.891 Personal history of nicotine dependence; Z79.899 Other long term (current) drug therapy
CPT/HCPCS: 70450; 80053; 80320; 82140; 82607; 82746; 84439; 84443; 84481; 85025; 85610; A9270